=== PATIENT | male | born 1985 | race Caucasian/White ===

== ENCOUNTER 2017-05-11 13:28 | Observation (INO) | payer MEDICAID ==
[~2017-05-11] VITALS: Ht 170.2 cm; Wt 69.5 kg
[2017-05-11 13:37] VITALS: BP 157/86
[2017-05-11 14:07] LABS: URINE BLOOD TRACE-INTACT (NEG)
[2017-05-11 14:08] LABS: LYMPH # 2.7 K/mm3 (0.7-4.5)
[2017-05-11 14:12] LABS: HEMOGLOBIN 18.2 g/dL (14.1-18.0)
[2017-05-11 14:26] LABS: AMPHETAMINES/METAMPHETAMINES NEGATIVE ng/mL (<1000)
[2017-05-11 14:34] LABS: URINE BILIRUBIN - DIPSTICK NEGATIVE (NEG)
[2017-05-11 14:41] LABS: URINE SQUAMOUS CELLS OCC #/hpf (OCC)
--- NOTE | 2017-05-11 15:14 | RADIOLOGY REPORT PS360 ---
CT ABD PELVIS W/O CONTRAST CLINICAL INDICATION: Right flank pain with low back pain, abdominal pain and tenderness RT FLANK PAIN ORDERING PHYSICIAN: Derrek Durán MD PATIENT AGE: 31 years COMPARISON: None TECHNIQUE: Axial images obtained with sagittal and coronal reformats. PROCEDURE: Oral Contrast: None IV Contrast: None . FINDINGS: Lung bases are clear. The liver, gallbladder, spleen, pancreas, adrenal glands, and kidneys are unremarkable. No hydronephrosis or obstructing renal or ureteral calculus. Unremarkable appendix. No evidence of intestinal obstruction free air or diverticulitis. The jejunal loops appear thickened. There is also some thickening of the terminal ileum. There are multiple unopacified bowel loops present within the abdomen/pelvis which could obscure or mimic pathology. If symptoms persists, consider repeating exam with IV and oral contrast administration. A loop of small bowel in the right lower quadrant is thickened and may be slightly distended. This is difficult to evaluate without IV and oral contrast. No acute bony anomalies. IMPRESSION: 1. The findings are consistent with enteritis. There are thickened loops of terminal ileum also present in the right lower quadrant. Crohn's disease is a consideration. Consider repeating exam with IV and oral contrast. 2. No evidence of obstructing ureteral calculus. Unremarkable appendix. 3. There are multiple unopacified bowel loops present within the abdomen/pelvis which could obscure or mimic pathology. If symptoms persists, consider repeating exam with IV and oral contrast administration
--- NOTE | 2017-05-11 15:50 | Emergency Room Report ---
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 N Clinical Suspician of Infection? Y Mental Status: 1 - Regular (Normal Baseline) Sepsis Risk:Possible Sepsis Risk Have you (or family members/close friends) recently traveled outside the [facility]? N If Yes, where/when: Have you had exposure to infectious disease within the past month? N TB? Other? Specify: Source patient, RN notes reviewed, family, RN/MD Exam Limitations no limitations Comment This is a 31-year-old male from out [facility] ([place], [place]) presenting with severe low back pain, into her scapular pain, abdominal pain, associated with intractable nausea and vomiting for the past 3 days. Patient is unable to hold anything down at this point. He denies any fever, any recent travel or any recent exposure to sick contacts. Patient advised that he has had chronic low back pain since age 14, but he has never seen a doctor for this condition, but he suspects that he probably has "scoliosis". Patient denies any drug abuse, denies taking any medications at this time. There has any fever or diarrhea. ALLERGIES Coded Allergies: No Known Allergies (05/11/17) History Medical History General CAD? No Angina: No MA: No Hypertension? No Hyperlipidemia? No CHF? No DVT? No PE? No COPD? No Asthma? No Anemia? No GERD? No Gastric ulcers? No GI Bleed? No Hernia? No Thyroid Problems? No Hypothyroidism? No CVA? No Diabetes? No Renal Insuffiency? No End Stage Renal Disease? No UTI? No Stones? No BPH? No GB Disease: No Nephritic Syndrome? No Asplenia? No Hepatitis? No Sickle Cell Disease? No Arthritis? No Migraines? No Cataracts? No Glaucoma? No MRSA? No HIV? No TB? No Anxiety? No Depression? No Cancer? No Site: N Immunization Hx DT/Tetanus Unknown Surgical Hx Previous Surgery?N Social History Smoking Hx Smoker: Current Every Day Smoker Tobacco: Yes Type Cigarettes Packs/day 1 1/2 - 2 Packs Alcohol Alcohol: No Review of Systems All Other Systems Reviewed and Negative Gastrointestinal see HPI, abdominal pain, denies diarrhea, nausea, vomiting Musculoskeletal back pain Physical Exam Vital Signs Vital Signs Date Time Temp Pulse Resp B/P Pulse O2 O2 Flow FiO2 Ox Delivery Rate 05/11 1404 20 05/11 1337 98.4 94 20 157/86 99 General Appearance normal appearance, WD/WN, moderate distress Respiratory Status Yes: trachea midline, chest symmetrical, non tender chest. No: respiratory distress. Lung Sounds bilateral: normal breath sounds, lungs clear. Cardiovascular normal exam, regular rate/rhythm, no peripheral edema, no gallop, no JVD, no murmur, no rub, normal peripheral pulses Peripheral Pulses Pulses normal Yes Gastrointestinal normal bowel sounds, soft, no organomegaly, tenderness ( diffusely tender) Back normal inspection, no CVA tenderness, no vertebral tenderness, gait normal, muscle spasm (of the T/LS spine) Extremities non-tender, normal range of motion, normal inspection Neurologic alert, lead neurodiagnostic technologist II-XII nml as tested, normal exam, oriented x 3 Mental status depressed affect Skin normal color, warm/dry, decreased skin turgor, dry mucous membranes Medical Decision Making LABS/Meds/Orders Pt receiving controlled substance in ED? No Comment 15:15 - patient reevaluated appears still in distress, still vomiting muscular unable to hold down fluids. 15:30-case d/w Dr Smith, advised of patient's presentation and findings, agreeable with admission. Care just with Dr. Smith this time. I'll write temporary admission orders per hospital protocol. Upon patient's arrival to the floor the unit nurse will contact PCP in order to obtain a full inpatient admission orders. When confronted with his positive urine screen the patient advised that he has taken a friend's Valium yesterday. Results/Orders Laboratory Tests 05/11/17 1355: Opiates Screen NEGATIVE, Urine Methadone Screen NEGATIVE, Barbiturates NEGATIVE, Phencyclidine Screen NEGATIVE, Amphetamines Screen NEGATIVE, Benzodiazepines Screen POSITIVE H, Cocaine Screen NEGATIVE, Marijuana (THC) Screen POSITIVE H 05/11/17 1355: Sodium 134 L, Potassium 3.3 L, Chloride 89 L, Carbon Dioxide 30, BUN 46 H, Creatinine 2.4 H, Estimated Creat Clear 43 L, Estimated GFR (MDRD) 32, Glucose 129 H, Calcium 9.7, Total Bilirubin 1.2 H, AST 24, ALT 23, Alkaline Phosphatase 87, Total Protein 9.6 H, Albumin 5.3 H, Globulin 4.3 H, Albumin/ Globulin Ratio 1.2, Amylase 51, Lipase 90, WBC 14.3 H, RBC 5.57, Hgb 18.2 *H, Hct 51.3, MCV 92.1, RDW 12.1, Plt Count 276, MPV 7.5, Gran % 71.0, Gran # 10.2 H, Lymphocytes % 19.0, Monocytes % 8.3, Eosinophils % 1.2, Basophils % 0.5, Lymphocytes # 2.7, Monocytes # 1.2 H, Eosinophils # 0.2, Basophils # 0.1, PUBS MCHC 35.4, MCH 32.6 H, Salicylates 1.7 L, Acetaminophen 0 L, Urine Color YELLOW, Urine Appearance CLOUDY, Urine pH 5.5, Ur Specific [place] >= 1.030, Urine Protein 2+ H, Urine Ketones NEGATIVE, Urine Blood TRACE-INTACT, Urine Nitrate NEGATIVE, Urine Bilirubin NEGATIVE, Urine Urobilinogen 0.2, Ur Leukocyte Esterase NEGATIVE, Urine RBC OCC, Urine WBC 10-20, Ur Squamous Epith Cells OCC, Urine Bacteria 4+, Hyaline Casts TNTC, Urine Glucose NEGATIVE Current Medication Orders Sig/See Start time Last Medication Dose Route Stop Time Status Admin Morphine Sulfate 6 MG ONCE ONE 05/11 1530 CAN IV 05/11 1531 Promethazine HCl 12.5 MG ONCE ONE 05/11 1530 DC 05/11 IV 05/11 1531 1524 Sodium Chloride 1,000 ML .Q1H1M 05/11 1530 DC IV 05/11 1630 Sodium Chloride 10 ML PRN PRN 05/11 1530 AC IV 05/12 1517 Sodium Chloride 25 ML ONCE ONE 05/11 1530 DC IV 05/11 1544 Sodium Chloride 1,000 ML .STK-MED ONE 05/11 1523 DC IV Promethazine HCl 0 .STK-MED ONE 05/11 1522 DC .ROUTE Ketorolac 30 MG ONCE ONE 05/11 1400 DC 05/11 Tromethamine IV 05/11 1401 1404 Ketorolac 0 .STK-MED ONE 05/11 1400 DC Tromethamine .ROUTE Ondansetron HCl 4 MG ONCE ONE 05/11 1400 DC 05/11 IV 05/11 1401 1403 Ondansetron HCl 0 .STK-MED ONE 05/11 1400 DC .ROUTE Sodium Chloride 1,000 ML .Q1H1M 05/11 1400 DC 05/11 IV 05/11 1500 1403 Sodium Chloride 10 ML PRN PRN 05/11 1400 AC IV 05/12 1347 Sodium Chloride 1,000 ML .Q1H1M 05/11 1400 DC 05/11 IV 05/11 1500 1524 Sodium Chloride 10 ML PRN PRN 05/11 1400 AC IV 05/12 1347 Sodium Chloride 10 ML PRN PRN 05/11 1400 AC IV 05/12 1348 Sodium Chloride 1,000 ML .STK-MED ONE 05/11 1400 DC IV Orders Procedure Date/time Status Decision to admit 05/[address] ABD/PELVIS REQ 05/11 1428 Complete CULTURE, URINE 05/11 1355 Active IV SALINE LOCK 05/11 1348 Active URINALYSIS/COMPLETE 05/11 1348 Complete SALICYLATE 05/11 1348 Complete LIPASE 05/11 1348 Complete DRUG ABUSE SCREEN (10) 05/11 1348 Complete CBC WITH AUTO DIFF 05/11 1348 Complete CHEM 12 PROFILE 05/11 1348 Complete AMYLASE 05/11 1348 Complete Acetaminophen 05/11 1348 Complete XRAY/CT/US XRAY/CT/US CT abdomen, pelvis CT interpretation by discussed w/radiologist (Dr Fidencio Caldwell) CT Results abnormal Comment jejunitis Departure Departure Time of Disposition 1549 Disposition Still a Patient Clinical Impression Primary Impression: Dehydration Secondary Impressions: Acute renal injury Jejunitis Low back pain Qualifiers: Chronicity: acute Back pain laterality: unspecified Sciatica presence: without sciatica Qualified Code: M54.5 - Low back pain Condition STABLE ED Critical Care Critical Care No at 1632
--- NOTE | 2017-05-11 16:17 | PHARMACY CLINIC NOTE ---
Patient Demographics Patient Demographics Admission date: 05/11/17 Date: 05/11/17 Time: 1616 Allergies Coded Allergies: No Known Allergies (05/11/17) HEIGHT- FT: 5 IN: 7.00 K.586 VTE General Information Labs: Laboratory Tests 05/11 1355 Hematology Hgb (14.1 - 18.0 g/dL) 18.2 *H Hct (42.0 - 52.0 %) 51.3 Plt Count (142 - 424 K/mm3) 276 Disclaimer The following section includes nursing documentation that has been pulled in for pharmacy review. VTE prophylaxis [id number] VTE prophylaxis ordered? Yes Type of prophylaxis/treatment: GARY at 1611
[2017-05-11 16:52] VITALS: BP 146/84
[2017-05-11 17:17] VITALS: BP 146/84
[2017-05-11 19:37] VITALS: BP 113/58
--- NOTE | 2017-05-11 19:39 | HISTORY AND PHYSICAL REPORT ---
History and Physical (FCA) Date of admission: 05/11/17 Chief complaint: Vomiting, dehydration History: History of Present Illness: This 31-year-old white male is from out of [facility] ([place], [place]). He has been visiting friends here in [place]. He is admitted with intractable nausea and vomiting for the past 3 days. He states he's unable to hold anything down at this point. Denies any fever. Denies recent travel that might of exposed him to gastrointestinal infection. He has had some upper mid back pain. He's had some abdominal pain with this nausea. He initially denied any drug use, but screening showed marijuana and benzodiazepine positivity. When questioned further he admits to occasional marijuana use and admits that in the past he has used cocaine. He is a one pack per day cigarette smoker. He only occasionally uses alcohol and rarely over the past year. 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 There may have been a renal issue at that time as well. Also significant is a history of episodic loose stools. He denies any dietary precipitating factors for his present problem. Past Medical History: Medical History: CAD? No Angina: No OR: No Hypertension? No Hyperlipidemia? No CHF? No DVT? No PE? No COPD? No Asthma? No Anemia? No GERD? No Gastric ulcers? No GI Bleed? No Hernia? No Thyroid Problems? No Hypothyroidism? No CVA? No Seizures? No Diabetes? No Renal Insuffiency? No (perhaps 2 years ago?) UTI? No (no prior history) Stones? No BPH? No GB Disease: No Nephritic Syndrome? No Asplenia? No Hepatitis? No Sickle Cell Disease? No Arthritis? No Migraines? No Cataracts? No Glaucoma? No MRSA? No HIV? No TB? No Anxiety? No Depression? No Cancer? No Site: N Surgical history: Previous Surgery?N Medications: Reported Medications No Known Home Medications Allergies: Coded Allergies: No Known Allergies (05/11/17) Family History: Family history: Postive for: unknown. Additional family history: His father was adopted so the family history is somewhat limited. His mother is still living and is healthy. His father of suicide. He has 2 sisters and one brother and they're in good health. Patient is and has a 12-year- old daughter. Social History: Smoking Hx Tobacco: Yes (1 pack per day) Smoker: Current Every Day Smoker Type: Cigarettes Packs/day: 1 1/2 - 2 Packs Are you exposed to second hand Yes Alcohol: Alcohol: No (rarely) Hx of Drug Use: Drug Use? Yes (marijuana. 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 No Constitutional Positive for: lethargy, malaise, weak. No: chills. ENT No: ear ache, nose bleed, ear drainage, hearing loss, mouth pain, nasal congestion, ear ringing, sinus problems, sore throat, throat swelling, tongue pain, tongue swelling, toothache, voice change. Cardiovascular No: SHAFFER, PND, chest pain, edema, orthopnea, palpitations. Respiratory No: dyspnea on exertion, PND, shortness of air, hemoptysis, non-productive, pleurisy, pleuritic pain, pneumonia, productive cough (sputum), wheezing. GI Positive for: abdominal pain, diarrhea, nausea, vomitting. (male) No: flank pain, frequency, hematuria, nocturia, penile lesion, penile discharge, testicular pain, testicular swelling, urgency. Skin No: abrasions, bruising, contusions, diaphoresis, ecchymosis, itching, laceration, rash, swelling. Neurological Positive for: bowel dysfunction, light headed, weakness. No: change in LOC, bladder dysfunction, syncope. Immune/allergy No: allergy. Eyes Positive for: swelling (hands occasionally). No: blurry vision. Musculoskeletal No: joint pain, joint swelling. Heme No: bleeding, bruising. Endocrine No: cold intolerance, dyspnea, heat, polydipsia. Psychiatric No: change in mental status. Physical Exam: Vital signs: 1ST Vital Signs Result Date Time Pulse Ox 99 05/11 1337 B/P 157/86 05/11 1337 Temp 98.4 05/11 1337 Pulse 94 05/11 1337 Resp 20 05/11 1337 O2 Delivery ROOM AIR 05/11 1652 Exam: General appearance: alert, no acute distress, responsive Eyes: anicteric, conjunctiva clear, PERRLA ENT: mucous membranes moist (improving) Neck: full range of motion, lymphadenopathy (absent), thyroid (normal) Cardiovascular: regular rate & rhythm, no murmur Respiratory: clear to auscultation, good air movement, normal breath sounds, no respiratory distress ABD: soft, no tenderness, no guarding, no organomegaly Genitourinary: uncircumcised, no lesions. No hernias. Testes normal. Extremities: full range of motion, no peripheral edema, warm Skin: dry, intact Neuro: alert, no deficit, oriented, speech clear Lab data: Labs: Laboratory Tests 05/11/17 1355: Opiates Screen NEGATIVE, Urine Methadone Screen NEGATIVE, Barbiturates NEGATIVE, Phencyclidine Screen NEGATIVE, Amphetamines Screen NEGATIVE, Benzodiazepines Screen POSITIVE H, Cocaine Screen NEGATIVE, Marijuana (THC) Screen POSITIVE H 05/11/17 1355: Sodium 134 L, Potassium 3.3 L, Chloride 89 L, Carbon Dioxide 30, BUN 46 H, Creatinine 2.4 H, Estimated Creat Clear 43 L, Estimated GFR (MDRD) 32, Glucose 129 H, Calcium 9.7, Total Bilirubin 1.2 H, AST 24, ALT 23, Alkaline Phosphatase 87, Total Protein 9.6 H, Albumin 5.3 H, Globulin 4.3 H, Albumin/ Globulin Ratio 1.2, Amylase 51, Lipase 90, WBC 14.3 H, RBC 5.57, Hgb 18.2 *H, Hct 51.3, MCV 92.1, RDW 12.1, Plt Count 276, MPV 7.5, Gran % 71.0, Gran # 10.2 H, Lymphocytes % 19.0, Monocytes % 8.3, Eosinophils % 1.2, Basophils % 0.5, Lymphocytes # 2.7, Monocytes # 1.2 H, Eosinophils # 0.2, Basophils # 0.1, PUBS MCHC 35.4, MCH 32.6 H, Salicylates 1.7 L, Acetaminophen 0 L, Urine Color YELLOW, Urine Appearance CLOUDY, Urine pH 5.5, Ur Specific [place] >= 1.030, Urine Protein 2+ H, Urine Ketones NEGATIVE, Urine Blood TRACE-INTACT, Urine Nitrate NEGATIVE, Urine Bilirubin NEGATIVE, Urine Urobilinogen 0.2, Ur Leukocyte Esterase NEGATIVE, Urine RBC OCC, Urine WBC 10-20, Ur Squamous Epith Cells OCC, Urine Bacteria 4+, Hyaline Casts TNTC, Urine Glucose NEGATIVE Microbiology 05/11 1800 BLOOD: Anaerobic Blood Culture - RECD 05/11 1800 BLOOD: Aerobic Blood Culture - RECD 05/11 1355 URINE CC: Urine Culture - RECD Radiology results: Results: Thickened loops of terminal ileum. Kidneys, liver, pancreas appear normal. Diagnosis(es): 1. Dehydration 2. Jejunitis 3. Low back pain 4. Acute renal insufficiency 5. Hypokalemia Plan: See orders. IV fluids. Potassium supplementation. Further evaluation. He is asking for pain medication. at 1939
[2017-05-12 04:00] VITALS: BP 126/76
[2017-05-12 06:51] LABS: LYMPH % 21.6 % (10-50)
[2017-05-12 07:11] LABS: HEMOGLOBIN 15.9 g/dL (14.1-18.0)
[2017-05-12 07:29] VITALS: BP 138/80
--- NOTE | 2017-05-12 08:55 | ACUTE CARE PROGRESS NOTE (QUA) ---
See Addendum Progress Notes Subjective Date 05/12/17 Time 0735 Note Pt resting quietly in bed. He reports minimal nausea, has been tolerating sips of water and ice chips without emesis, has not yet tried clear liquid breakfast. Pt denies any loose stools since admission. He is still having low back pain which he considers chronic, no relief with pain meds. He has been up to the bathroom and is voiding normally. Objective Findings Last VS-Temp:98.9 B/P: 138/80 Pulse:60 Resp:18 SaO2:97 ROOM AIR Last weight lbs: 153 oz: 2 K.457 Method: Bed Scales Laboratory Tests 05/12/17 0623: Sodium 136, Potassium 3.7, Chloride 97 L, Carbon Dioxide 30, BUN 31 H, Creatinine 1.2, Estimated Creat Clear 88, Estimated GFR (MDRD) 71, Glucose 97, Calcium 9.3, WBC 13.9 H, RBC 4.98, Hgb 15.9, Hct 46.5, MCV 93.4, RDW 12.2, Plt Count 235, MPV 7.6, Gran % 68.6, Gran # 9.5 H, Lymphocytes % 21.6, Monocytes % 8.3, Eosinophils % 1.0, Basophils % 0.4, Lymphocytes # 3.0, Monocytes # 1.2 H, Eosinophils # 0.1, Basophils # 0.1, PUBS MCHC 34.5, MCH 32.2 H 05/11/17 1355: Opiates Screen NEGATIVE, Urine Methadone Screen NEGATIVE, Barbiturates NEGATIVE, Phencyclidine Screen NEGATIVE, Amphetamines Screen NEGATIVE, Benzodiazepines Screen POSITIVE H, Cocaine Screen NEGATIVE, Marijuana (THC) Screen POSITIVE H 05/11/17 1355: Sodium 134 L, Potassium 3.3 L, Chloride 89 L, Carbon Dioxide 30, BUN 46 H, Creatinine 2.4 H, Estimated Creat Clear 43 L, Estimated GFR (MDRD) 32, Glucose 129 H, Calcium 9.7, Total Bilirubin 1.2 H, AST 24, ALT 23, Alkaline Phosphatase 87, Total Protein 9.6 H, Albumin 5.3 H, Globulin 4.3 H, Albumin/ Globulin Ratio 1.2, Amylase 51, Lipase 90, WBC 14.3 H, RBC 5.57, Hgb 18.2 *H, Hct 51.3, MCV 92.1, RDW 12.1, Plt Count 276, MPV 7.5, Gran % 71.0, Gran # 10.2 H, Lymphocytes % 19.0, Monocytes % 8.3, Eosinophils % 1.2, Basophils % 0.5, Lymphocytes # 2.7, Monocytes # 1.2 H, Eosinophils # 0.2, Basophils # 0.1, PUBS MCHC 35.4, MCH 32.6 H, Salicylates 1.7 L, Acetaminophen 0 L, Urine Color YELLOW, Urine Appearance CLOUDY, Urine pH 5.5, Ur Specific [place] >= 1.030, Urine Protein 2+ H, Urine Ketones NEGATIVE, Urine Blood TRACE-INTACT, Urine Nitrate NEGATIVE, Urine Bilirubin NEGATIVE, Urine Urobilinogen 0.2, Ur Leukocyte Esterase NEGATIVE, Urine RBC OCC, Urine WBC 10-20, Ur Squamous Epith Cells OCC, Urine Bacteria 4+, Hyaline Casts TNTC, Urine Glucose NEGATIVE Microbiology 05/11 1800 BLOOD: Anaerobic Blood Culture - RECD 05/11 1800 BLOOD: Aerobic Blood Culture - RECD 05/11 1355 URINE CC: Urine Culture - RES Exam General appearance: alert, awake, no acute distress Cardiovascular: regular rate & rhythm, normal peripheral pulses Respiratory: good air movement with crackles throughout right lung rosales ABD: non-distended, no rebound, soft, no guarding, no organomegaly, no palpable mass, bowel sounds present, mildly and diffusely ttp throughout Extremities: moves all, no peripheral edema, warm Neuro: alert, oriented, speech clear, no focal deficit Reviewed: medications, vital signs, lab results, radiology report, nursing notes Assessment/Plan Problem List 1. Dehydration 2. Jejunitis 3. Low back pain 4. Acute renal insufficiency 5. Hypokalemia Patient condition Improving Plan: CXR today. Further per Dr. Smith. This inpt stay is expected to cross 2 MNs from start of care No at 0855 at 0929
[2017-05-12 09:38] VITALS: BP 138/80
--- NOTE | 2017-05-12 13:37 | RADIOLOGY REPORT PS360 ---
CHEST(2 VIEWS-NOT PORTABLE) HISTORY: Elevated WBC ORDERING PHYSICIAN: Kiah Smith MD PATIENT AGE: 31 years COMPARISON: None available FINDINGS: Unremarkable cardiovascular structures. No lobar consolidation or collapse. There is some slight increased density in the left hilum probably due to summation density from overlying rib and may be confirmed with follow-up. Mild degenerative change in the midthoracic spine. IMPRESSION: No acute finding, see above for detail
--- NOTE | 2017-05-12 15:06 | ACUTE CARE PROGRESS NOTE (QUA) ---
Progress Notes Subjective Date 05/12/17 Time 1500 Note The patient insists he must leave today to return to [place]. I have fully informed him regarding his CT findings and the impications of the jejunal abnormality. He has agreed to get his dose of Invanz this evening if he can then be discharged. We will give him a copy of his study. He is encouraged to contact an MD immediately upon return to [place]. A prescription for Cefdinir was sent to [facility] in [place], [place] at his direction. Objective Findings Last VS-Temp:98.9 B/P:138/80 Pulse:60 Resp:18 SaO2:97 ROOM AIR Last weight lbs:153 oz:2 K.457 Method:Bed Scales Assessment/Plan Problem List 1. Dehydration 2. Jejunitis 3. Low back pain 4. Acute renal insufficiency 5. Hypokalemia Patient condition Stable Plan: initiate discharge plan, Cefdinir 300mg bid #20 NR This inpt stay is expected to cross 2 MNs from start of care No at 1503
[2017-05-12] MEDS ORDERED: CEFDINIR300 M1 PO (15:18)
[2017-05-12 15:54] VITALS: BP 134/69
[2017-05-12 18:46] VITALS: BP 134/69
--- NOTE | 2017-05-14 14:11 | DISCHARGE SUMMARY STANDARD ---
Discharge Summary (FCA2) Date of admission: 05/11/17 Date of discharge: 05/12/17 Problem List: 1. Dehydration 2. Jejunitis 3. Low back pain 4. Acute renal insufficiency 5. Hypokalemia History of present illness: Me Alfred is a 31-year-old white male who is from out [facility] ([place], [place] ). He had been visiting friends in [place]. He was admitted with intractable nausea and vomiting for the previous 3 days. He stated that he had been unable to hold anything down. He denied any fever and recent travel that might have exposed him to gastrointestinal infection. He had some upper mid back pain, abdominal pain with the nausea. He initially denied any drug use, but screening showed marijuana and benzodiazepine positivity. When questioned further he admitted to occasional marijuana use and used of cocaine in the past. He had a one pack per day cigarette smoker. He only occasionally used alcohol and rarely over the past year. 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 There may have been a renal issue at that time as well. Also significant was a history of episodic loose stools. He denied any dietary precipitating factors for his present problem. Exam on admission: ST Vital Signs Result Date Time Pulse Ox 99 05/11 1337 B/P 157/86 05/11 1337 Temp 98.4 05/11 1337 Pulse 94 05/11 1337 Resp 20 05/11 1337 O2 Delivery ROOM AIR 05/11 1652 Exam: General appearance: alert, no acute distress, responsive Eyes: anicteric, conjunctiva clear, PERRLA ENT: mucous membranes moist (improving) Neck: full range of motion, lymphadenopathy (absent), thyroid (normal) Cardiovascular: regular rate & rhythm, no murmur Respiratory: clear to auscultation, good air movement, normal breath sounds, no respiratory distress ABD: soft, no tenderness, no guarding, no organomegaly Genitourinary: uncircumcised, no lesions. No hernias. Testes normal. Extremities: full range of motion, no peripheral edema, warm Skin: dry, intact Neuro: alert, no deficit, oriented, speech clear 05/11/17 1355: Opiates Screen NEGATIVE, Urine Methadone Screen NEGATIVE, Barbiturates NEGATIVE, Phencyclidine Screen NEGATIVE, Amphetamines Screen NEGATIVE, Benzodiazepines Screen POSITIVE H, Cocaine Screen NEGATIVE, Marijuana (THC) Screen POSITIVE H 05/11/17 1355: Sodium 134 L, Potassium 3.3 L, Chloride 89 L, Carbon Dioxide 30, BUN 46 H, Creatinine 2.4 H, Estimated Creat Clear 43 L, Estimated GFR (MDRD) 32, Glucose 129 H, Calcium 9.7, Total Bilirubin 1.2 H, AST 24, ALT 23, Alkaline Phosphatase 87, Total Protein 9.6 H, Albumin 5.3 H, Globulin 4.3 H, Albumin/ Globulin Ratio 1.2, Amylase 51, Lipase 90, WBC 14.3 H, RBC 5.57, Hgb 18.2 *H, Hct 51.3, MCV 92.1, RDW 12.1, Plt Count 276, MPV 7.5, Gran % 71.0, Gran # 10.2 H, Lymphocytes % 19.0, Monocytes % 8.3, Eosinophils % 1.2, Basophils % 0.5, Lymphocytes # 2.7, Monocytes # 1.2 H, Eosinophils # 0.2, Basophils # 0.1, PUBS MCHC 35.4, MCH 32.6 H, Salicylates 1.7 L, Acetaminophen 0 L, Urine Color YELLOW, Urine Appearance CLOUDY, Urine pH 5.5, Ur Specific [place] >= 1.030, Urine Protein 2+ H, Urine Ketones NEGATIVE, Urine Blood TRACE-INTACT, Urine Nitrate NEGATIVE, Urine Bilirubin NEGATIVE, Urine Urobilinogen 0.2, Ur Leukocyte Esterase NEGATIVE, Urine RBC OCC, Urine WBC 10-20, Ur Squamous Epith Cells OCC, Urine Bacteria 4+, Hyaline Casts TNTC, Urine Glucose NEGATIVE Microbiology 05/11 1800 BLOOD: Anaerobic Blood Culture - RECD 05/11 1800 BLOOD: Aerobic Blood Culture - RECD 05/11 1355 URINE CC: Urine Culture - RECD Radiology results: Results: Thickened loops of terminal ileum. Kidneys, liver, pancreas appear normal. Diagnosis(es): 1. Dehydration 2. Jejunitis 3. Low back pain 4. Acute renal insufficiency 5. Hypokalemia Plan: See orders. IV fluids. Potassium supplementation. Further evaluation. He is asking for pain medication. at 1939 <Electronically signed by Kiah Smith MD> 05/11/17 1939 I: 05/11/17 AT: 1857 Hospital Course: Patient was started on IVF and ABX on admission. He spent much time in the shower for the back pain. He had no further vomiting and no diarrhea. He did retain liquids. The PM of 05/12/17 the patient insisted that he had to return to [place]. Dr. Smith fully informed him regarding his CT findings and the implications of the jejunal abnormality. He agreed to get his dose of Invanz prior to leaving. Laboratory data this visit: 05/11/17 1355: Opiates Screen NEGATIVE, Urine Methadone Screen NEGATIVE, Barbiturates NEGATIVE, Phencyclidine Screen NEGATIVE, Amphetamines Screen NEGATIVE, Benzodiazepines Screen POSITIVE H, Cocaine Screen NEGATIVE, Marijuana (THC) Screen POSITIVE H 05/11/17 1355: Sodium 134 L, Potassium 3.3 L, Chloride 89 L, Carbon Dioxide 30, BUN 46 H, Creatinine 2.4 H, Estimated Creat Clear 43 L, Estimated GFR (MDRD) 32, Glucose 129 H, Calcium 9.7, Total Bilirubin 1.2 H, AST 24, ALT 23, Alkaline Phosphatase 87, Total Protein 9.6 H, Albumin 5.3 H, Globulin 4.3 H, Albumin/ Globulin Ratio 1.2, Amylase 51, Lipase 90, WBC 14.3 H, RBC 5.57, Hgb 18.2 *H, Hct 51.3, MCV 92.1, RDW 12.1, Plt Count 276, MPV 7.5, Gran % 71.0, Gran # 10.2 H, Lymphocytes % 19.0, Monocytes % 8.3, Eosinophils % 1.2, Basophils % 0.5, Lymphocytes # 2.7, Monocytes # 1.2 H, Eosinophils # 0.2, Basophils # 0.1, PUBS MCHC 35.4, MCH 32.6 H, Salicylates 1.7 L, Acetaminophen 0 L, Urine Color YELLOW, Urine Appearance CLOUDY, Urine pH 5.5, Ur Specific [place] >= 1.030, Urine Protein 2+ H, Urine Ketones NEGATIVE, Urine Blood TRACE-INTACT, Urine Nitrate NEGATIVE, Urine Bilirubin NEGATIVE, Urine Urobilinogen 0.2, Ur Leukocyte Esterase NEGATIVE, Urine RBC OCC, Urine WBC 10-20, Ur Squamous Epith Cells OCC, Urine Bacteria 4+, Hyaline Casts TNTC, Urine Glucose NEGATIVE 05/12/17 0623: Sodium 136, Potassium 3.7, Chloride 97 L, Carbon Dioxide 30, BUN 31 H, Creatinine 1.2, Estimated Creat Clear 88, Estimated GFR (MDRD) 71, Glucose 97, Calcium 9.3, WBC 13.9 H, RBC 4.98, Hgb 15.9, Hct 46.5, MCV 93.4, RDW 12.2, Plt Count 235, MPV 7.6, Gran % 68.6, Gran # 9.5 H, Lymphocytes % 21.6, Monocytes % 8.3, Eosinophils % 1.0, Basophils % 0.4, Lymphocytes # 3.0, Monocytes # 1.2 H, Eosinophils # 0.1, Basophils # 0.1, PUBS MCHC 34.5, MCH 32.2 H Imagin05/11/17 CT of abdomen/pelvis IMPRESSION: 1. The findings are consistent with enteritis. There are thickened loops of terminal ileum also present in the right lower quadrant. Crohn's disease is a consideration. Consider repeating exam with IV and oral contrast. 2. No evidence of obstructing ureteral calculus. Unremarkable appendix. 3. There are multiple unopacified bowel loops present within the abdomen/pelvis which could obscure or mimic pathology. If symptoms persists, consider repeating exam with IV and oral contrast administration CXR 05/12/17 IMPRESSION: No acute finding, see above for detail Discharge medications: Start taking the following new medications: Cefdinir (Cefdinir) 300 MG CAPSULE 300 MILLIGRAM ORAL TWICE A DAY Qty = 20 No Refills Disposition: Patient was discharged in stable and fair condition. Orders with: REFERRAL Follow up: 4 DAYS Activity: Limited activity Diet: Low Fat/Low Cholesterol Discharge to: HOME Agency needed? N Copy of his study was given to him. He was encouraged to contact an MD immediately upon return to [place]. A prescription for Cefdinir was sent to [facility] in [place], [place] at his direction. at 1411
--- OUTSIDE RECORDS SUMMARY | 2017-06-11 07:03 | External Medical Summary Rpt ---
Author Author , SHARI JIMENEZCOOC Address Unknown Phone [email or web address] Care Team Providers Care Remediation Bioanalytics Consultant Name Role Phone [facility] Unavailable Unavailable PHYSICIANS, [facility] PETER KELSEY, Unavailable Unavailable PEETR KELSEY NEILS AICHA, NEILS AICHA Unavailable Unavailable [facility] Unavailable Unavailable OF NOT, [facility] [place] [facility], Unavailable Unavailable [place] [facility] GANESH SCO, GANESH SCO Unavailable Unavailable Purpose Continuity of Care Document - 06-19-2016 through 2016 Problems Code Diagnosis DOS Provider Status R1013 EPIGASTRIC 06-26-2016 [facility] OF NOT R1084 GENERALIZED 06-26-2016 [facility] R112 NAUSEA WITH 06-26-2016 [facility] UNSPECIFIED OF NOTH R109 UNSPECIFIED 06-19-2016 [facility] PAIN OF NOT Procedures Procedure [place] [address] RADIOLOGY PETER ABDOMEN & 6 KELSEY PELVIS ASSOCIATE W/[place] [address] RADIOLOGY GANESH SCO ABDOMEN & 6 PELVIS ASSOCIATE W/CONTRAS S OF NOTH T MATERIAL RADIOLOGI 72521 RADIOLOGY NEILS AICHA C EXAM 6 CHEST 2 ASSOCIATE VIEWS S OF NOTH FRONTAL&L ATERAL Encounters Encounter Start End Date Code Location Performer Type Date EMERGENCY 26337 [facility] 6 6 EMERGENCY N AICHA DEPARTMEN T VISIT PHYSICIAN HIGH/URGE S NT SEVERITY
--- OUTSIDE RECORDS SUMMARY | 2017-06-11 07:03 | External Medical Summary Rpt ---
Author Author , SHARI JIMENEZCOCO Address Unknown Phone [email or web address] Care Team Providers Care Humidifier Operator Name Role Phone [facility] Unavailable Unavailable PHYSICIANS, [facility] PETER KELSEY, Unavailable Unavailable PETER KELSEY NEILS AICHA, NEILS AICHA Unavailable Unavailable [...] Procedure DOS [place] [address] RADIOLOGY PETER ABDOMEN & 6 KELSEY PELVIS ASSOCIATE W/[place] [address] RADIOLOGY GANESH SCO ABDOMEN & 6 PELVIS ASSOCIATE W/CONTRAS S OF NOTH T MATERIAL RADIOLOGI 71123 RADI[facility] NEILS AICHA C EXAM 6 CHEST 2 ASSOCIATE VIEWS S OF NOTH FRONTAL&L ATERAL Encounters Encounter Start End Date Code Location Performer Type Date EMERGENCY 35107 [facility] 6 6 EMERGENCY N AICHA DEPARTMEN T VISIT PHYSICIAN HIGH/URGE S NT SEVERITY
--- OUTSIDE RECORDS SUMMARY | 2017-06-11 07:04 | External Medical Summary Rpt ---
Demographics Preferred Language Faroese Marital Status Unknown Rastafarian Affiliation Unknown Race Unknown Ethnic Group Unknown Author Author SHARI Address Unknown Phone Immunization No patient found.
--- OUTSIDE RECORDS SUMMARY | 2017-06-11 07:04 | External Medical Summary Rpt ---
Author Author SHARI Lyon, [employer] Organization [employer] Address Unknown Phone Unavailable
--- OUTSIDE RECORDS SUMMARY | 2017-06-11 07:04 | External Medical Summary Rpt ---
Author Author , SHARI Organization [employer]ARI Address Unknown Phone [email or web address] Care Team Providers Care Brood Station Manager Name Role Phone [facility] Unavailable Unavailable [...] R1013 EPIGASTRIC 06-26-2016 [facility] R1084 GENERALIZED 06-26-2016 [facility] R112 NAUSEA WITH 06-26-2016 [facility] UNSPECIFIED OF NOTH R109 UNSPECIFIED 06-19-2016 [facility] PAIN OF NOT Procedures Procedure [place] [address] RADIOLOGY PETER ABDOMEN & 6 KELSEY PELVIS ASSOCIATE W/CONTRAS S OF NOTH T MATERIAL RADIOLOGI 42096 RADI[facility] NEILS AICHA C EXAM 6 CHEST 2 ASSOCIATE VIEWS S OF NOTH FRONTAL&[place] [address] RADIOLOGY GANESH SCO ABDOMEN & 6 PELVIS ASSOCIATE W/CONTRAS S OF NOTH T MATERIAL Encounters Encounter Start End Date Code Location Performer Type Date EMERGENCY 58463 [facility] 6 6 EMERGENCY N AICHA DEPARTMEN T VISIT PHYSICIAN HIGH/URGE S NT SEVERITY
--- OUTSIDE RECORDS SUMMARY | 2017-06-11 07:04 | External Medical Summary Rpt ---
Author Author , SHARI Organization [employer]ARI Address Unknown Phone [email or web address] Care Team Providers Care Electric Razor Assembler Name Role Phone [facility] Unavailable Unavailable [...] Procedure DOS [place] [address] RADIOLOGY PETER ABDOMEN & 6 KELSEY PELVIS ASSOCIATE W/CONTRAS S OF NOTH T MATERIAL RADIOLOGI 18488 RADIOLOG[facility] NEILS AICHA C EXAM 6 CHEST 2 ASSOCIATE VIEWS S OF NOTH FRONTAL&[place] [address] RADIOLOGY GANESH SCO ABDOMEN & 6 PELVIS ASSOCIATE W/CONTRAS S OF NOTH T MATERIAL Encounters Encounter Start End Date Code Location Performer Type Date EMERGENCY 12403 [facility] 6 6 EMERGENCY N AICHA DEPARTMEN T VISIT PHYSICIAN HIGH/URGE S NT SEVERITY
--- OUTSIDE RECORDS SUMMARY | 2017-06-11 07:04 | External Medical Summary Rpt ---
Demographics Preferred Language French Marital Status Unknown Confucianist Affiliation Unknown Race Unknown Ethnic Group Unknown Author Author SHARI Address Unknown Phone Immunization No patient found.
--- OUTSIDE RECORDS SUMMARY | 2017-06-11 07:19 | External Medical Summary Rpt ---
Author Author , SHARI MCCARTHY Address Unknown Phone [email or web address] Care Team Providers Care Lab Engineer Name Role Phone [facility] Unavailable Unavailable PHYSICIANS, [facility] PETER KELSEY, Unavailable Unavailable PETER KELSEY NEILS AICHA, NEILS AICHA Unavailable Unavailable [facility] Unavailable Unavailable OF NOT, [facility] [place] AICHA, Unavailable Unavailable [place] [facility] GANESH SCO, GANESH SCO Unavailable Unavailable Purpose Continuity of Care Document - 06-19-2016 through 2016 Problems Code Diagnosis DOS Provider Status R1013 EPIGASTRIC 06-26-2016 [facility] R1084 GENERALIZED 06-26-2016 [facility] R112 NAUSEA WITH 06-26-2016 [facility] UNSPECIFIED OF [facility] R109 UNSPECIFIED 06-19-2016 [facility] PAIN OF [facility] E86.0 DEHYDRATION K52.9 NONINFECTIV E GASTROENTER ITIS AND COLITIS, UNSPECIFIED M54.5 LOW BACK PAIN N17.9 ACUTE KIDNEY FAILURE, UNSPECIFIED Procedures Procedure [place] [address] RADIOLOGY PETER ABDOMEN & 6 KELSEY PELVIS ASSOCIATE W/CONTRAS S OF NOTH T MATERIAL RADIOLOGI 63318 RADIOLOGY NEILS AICHA C EXAM 6 CHEST 2 ASSOCIATE VIEWS S OF NOTH FRONTAL&[place] [address] RADIOLOGY GANESH SCO ABDOMEN & 6 PELVIS ASSOCIATE W/CONTRAS S OF NOTH T MATERIAL Encounters Encounter Start End Date Code Location Performer Type Date EMERGENCY 29275 [facility]ICHARD 6 6 EMERGENCY N AICHA DEPARTMEN T VISIT PHYSICIAN HIGH/URGE S NT SEVERITY
--- OUTSIDE RECORDS SUMMARY | 2017-06-11 07:19 | External Medical Summary Rpt ---
Author Author , SHARI MCCARTHY Address Unknown Phone [email or web address] Care Team Providers Care Agate Setter Name Role Phone [facility] Unavailable Unavailable PHYSICIANS, [facility] PETER KELSEY, Unavailable Unavailable PETER KELSEY NEILS AICHA, NEILS AICHA Unavailable Unavailable [facility] Unavailable Unavailable OF NOT, [facility] [place] AICHA, Unavailable Unavailable [place] [facility] GANESH SCO, GANESH SCO Unavailable Unavailable Purpose Continuity of Care Document - 06-19-2016 through 2016 Problems Code Diagnosis DOS Provider Status R1013 EPIGASTRIC 06-26-2016 [facility] R1084 GENERALIZED 06-26-2016 [facility] R112 NAUSEA WITH 06-26-2016 [facility] UNSPECIFIED OF [facility] R109 UNSPECIFIED 06-19-2016 [facility] PAIN OF [facility] E86.0 DEHYDRATION K52.9 NONINFECTIV E GASTROENTER ITIS AND COLITIS, UNSPECIFIED M54.5 LOW BACK PAIN N17.9 ACUTE KIDNEY FAILURE, UNSPECIFIED Procedures Procedure [place] [address] RADIOLOGY PETER ABDOMEN & 6 KELSEY PELVIS ASSOCIATE W/CONTRAS S OF NOTH T MATERIAL RADIOLOGI 32772 RADIOLOGY NEILS AICHA C EXAM 6 CHEST 2 ASSOCIATE VIEWS S OF NOTH FRONTAL&[place] [address] RADIOLOGY GANESH SCO ABDOMEN & 6 PELVIS ASSOCIATE W/CONTRAS S OF NOTH T MATERIAL Encounters Encounter Start End Date Code Location Performer Type Date EMERGENCY 12699 [facility] 6 6 EMERGENCY N AICHA DEPARTMEN T VISIT PHYSICIAN HIGH/URGE S NT SEVERITY
--- OUTSIDE RECORDS SUMMARY | 2017-06-11 07:19 | External Medical Summary Rpt ---
Author Author , SHARI Organization [employer]ARI Address Unknown Phone Care Team Providers Care Veteran Appeals Reviewer Name Role Phone [facility] Unavailable Unavailable [...] Procedure DOS [place] [address] RADIOLOGY PETER ABDOMEN & 6 KELSEY PELVIS ASSOCIATE W/CONTRAS S OF NOTH T MATERIAL RADIOLOGI 85012 RADIOLOGY NEILS AICHA C EXAM 6 CHEST 2 ASSOCIATE VIEWS S OF NOTH FRONTAL&[place] [address] RADIOLOGY GANESH SCO ABDOMEN & 6 PELVIS ASSOCIATE W/CONTRAS S OF NOTH T MATERIAL Encounters Encounter Start End Date Code Location Performer Type Date EMERGENCY 65845 [facility] RICHAR[facility]O 6 6 EMERGENCY N AICHA DEPARTMEN T VISIT PHYSICIAN HIGH/URGE S NT SEVERITY
--- OUTSIDE RECORDS SUMMARY | 2017-06-11 07:19 | External Medical Summary Rpt ---
Demographics Preferred Language Bengali Marital Status Unknown Muslim Affiliation Unknown Race Unknown Ethnic Group Unknown Author Author SHARI Address Unknown Phone Immunization No patient found.
--- OUTSIDE RECORDS SUMMARY | 2017-06-11 07:19 | External Medical Summary Rpt ---
Author Author , SHARI Organization [employer]ARI Address Unknown Phone [email or web address] Care Team Providers Care Workers' Compensation Claims Supervisor Name Role Phone [facility] Unavailable Unavailable [...] Procedure DOS [place] [address] RADIOLOGY PETER ABDOMEN & 6 KELSEY PELVIS ASSOCIATE W/CONTRAS S OF NOTH T MATERIAL RADIOLOGI 91534 RADIOLOGY NEILS AICHA C EXAM 6 CHEST 2 ASSOCIATE VIEWS S OF NOTH FRONTAL&[place] [address] RADIOLOGY GANESH SCO ABDOMEN & 6 PELVIS ASSOCIATE W/CONTRAS S OF NOTH T MATERIAL Encounters Encounter Start End Date Code Location Performer Type Date EMERGENCY 53566 [facility] RICHAR[facility]O 6 6 EMERGENCY N AICHA DEPARTMEN T VISIT PHYSICIAN HIGH/URGE S NT SEVERITY
--- OUTSIDE RECORDS SUMMARY | 2017-06-11 07:19 | External Medical Summary Rpt ---
Demographics Preferred Language Amharic Marital Status Unknown Pentecostalism Affiliation Unknown Race Unknown Ethnic Group Unknown Author Author SHARI Address Unknown Phone Immunization No patient found.
== END 2017-05-12 18:40 | disposition home or self-care (01) ==
LOC: ER 13:28 → 2ND 15:46 → ER 15:46 → 2ND 16:58
PROVIDERS: Emergency Medicine; Family Medicine
DX: E86.0 Dehydration (principal); K52.9 Noninfective gastroenteritis and colitis, unspecified; E87.6 Hypokalemia
CPT/HCPCS: G0378; J1335; J2405